=== PATIENT | male | born 1940 | race Caucasian/White ===

== ENCOUNTER → 2016-06-24 | Outpatient (CLI) | payer OTHER, MEDICARE ==
[2016-06-24 11:10] LABS: CALCIUM 9.8 mg/dL (8.7-10.7)
== END ==
LOC: MOB LAB 10:06
DX: I10 Essential (primary) hypertension (principal); E78.5 Hyperlipidemia, unspecified
CPT/HCPCS: 36415; 80048

== ENCOUNTER → 2016-07-05 | Outpatient (CLI) | payer OTHER, MEDICARE | LOC: MMPC 09:00 | DX: R07.89 Other chest pain (principal) | CPT/HCPCS: 99212; G0463 ==